=== PATIENT | female | born 1965 | race Caucasian/White ===

== ENCOUNTER 2024-11-08 06:36 | Inpatient (IN) ==
--- NOTE | 2024-11-08 07:05 | Emergency Department Note ---
Impression & Plan Closed fracture of right tibial plateau, Fall from standing ED Provider Note HISTORY OF PRESENT ILLNESS: Patient is a 59-year-old female presenting with right knee pain. Patient reports she just moved into a new house and thought she was on the ground floor but she was 2 steps away, and lost her footing and fell, landing on her right knee. Reports immediate pain and deformity to the knee. She reports that "it sounded like it snap, crackle then popped." She was unable to bear weight since the injury. Denies striking her head or loss of consciousness. She has had previous cartilage repair to the right knee. Denies any numbness or tingling down the leg. Currently complaining of 7 out of 10 pain in the knee. ROS: as above PHYSICAL EXAM: Constitutional: Patient appears in no acute distress. HENT: Head: Normocephalic and atraumatic. Eyes: EOMI, PERRL Mouth/Throat: Mucous membranes moist. Neck: Trachea midline. Neck supple. Musculoskeletal: - RLE: Swelling to the anterior right knee. Patient is able to flex and extend the knee, but with some significant pain with range of motion. Able to dorsiflex and plantarflex the ankle. Sensation intact to light touch about the nerve distributions of the leg. Intact DP and PT pulses. Patient does have laxity of the knee with valgus stress on the knee. No laxity with varus stressing. Skin: Warm and dry. No rash, erythema, pallor or cyanosis Psychiatric: Appropriate mood and affect for situation. Neurological: Alert and keenly responsive. CN II-XII grossly intact, moving all extremities equally and fully. MDM: - Vitals signs showed hypertension - History obtained via patient. History as above. - Chronic conditions affecting care: None - Differential diagnoses include, but are not limited to: Patellar fracture; tibial plateau fracture; knee dislocation ligamentous injury; - Order placed for continuous cardiac monitoring. At this time, monitor showed rate of 63 bpm with normal sinus rhythm, per my interpretation. - External medical records reviewed. - Patient given 5 mg PO oxycodone on arrival to ER for pain control. - Right knee x-ray interpreted by myself showed a tibial plateau fracture, per my interpretation. Radioloy notes acute, depressed fracture of the right lateral tibial plateau. - Discussed case with orthopedic surgeon on-call, Dr. Pina, at 7:31 am. He requested a CT scan without contrast of the right knee be performed. - CT wo contrast right knee showed an acute depressed markedly comminuted fracture of the lateral tibial plateau extending to the base of the lateral tibial spine with maximal 9 mm depression. - Again discussed case with Dr. Pina at 9 AM. He states that the patient can remain here and he will plan to do surgery tomorrow. Requested admission to medicine service. - Knee was placed in a knee immobilizer splint. - IV access obtained and laboratory workup obtained for pre-op testing. - EKG image interpreted by myself showed normal sinus rhythm. Rate 60 bpm. QT 416. No acute ischemic changes. - Laboratory workup interpreted by myself showed normal WBC; stable electrolytes - CXR obtained for preoperative testing and interpreted by myself is negative for pneumonia, per my interpretation. - Discussion was had with caseworker protective services about patient's case and need for admission - Hospitalist, Dr. Jin consulted for admission at 9:45 AM. - [facility] ASSESSMENT AND PLAN: Diagnosis: Right tibial plateau fracture; fall from standing Plan: Admit Past Med/Surg History Problem List (Updated 11/08/24 @ 11:03 by Katie Mccarthy MD) Fall from standing (Acute) Closed fracture of right tibial plateau (Acute) Tibial plateau fracture, left Social History Smoking Status: Current every day smoker Preferred Language: Indonesian Feels Safe at Home: Yes Allergies Allergies Allergy/AdvReac Type Severity Reaction Status Date / Time No Known Allergies Allergy Unverified 11/08/24 08:45 Home Meds Home Medications Medication Instructions Recorded Confirmed acetaminophen 650 mg 1,300 mg PO QAM 11/08/24 11/08/24 tablet,extended release ascorbic acid (vitamin C) 250 mg 250 mg PO DAILY 11/08/24 11/08/24 tablet aspirin 81 mg chewable tablet 81 mg PO QPM 11/08/24 11/08/24 atorvastatin 40 mg tablet 40 mg PO QPM 11/08/24 11/08/24 fish, borage, flaxseed oils-omega 1 cap PO DAILY 11/08/24 11/08/24 3,6,9 comb no.1 1,200 mg capsule ([place] 3-6-9) naproxen sodium 220 mg tablet 440 mg PO QAM 11/08/24 11/08/24 (Aleve) Results & Data (ED) Vital Signs Vital Signs - 24 hr 11/08/24 06:40 11/08/24 08:56 11/08/24 10:00 Temperature 36.3 C L Temperature Source Temporal Artery Scan Pulse Rate 76 Pulse Rate [Finger] 68 71 Respiratory Rate 18 16 16 Respiratory Effort / Characteristics Non-Labored Spontaneous Non-Labored Spontaneous Respiratory Depth Normal Normal Normal Blood Pressure 161/65 H Blood Pressure [Right Arm] 164/70 H 150/75 H Blood Pressure Mean 97 Blood Pressure Mean [Right Arm] 101 100 Blood Pressure Position [Right Arm] Semi-fowlers Semi-fowlers Pulse Oximetry 100 97 99 Oxygen Delivery Method Room Air Room Air Room Air Sepsis Recent Fever Within 48 Hours No Sepsis New/Unexplained Change in Mental Status No Sepsis Action Taken by Nursing No Action Required 11/08/24 10:46 Temperature Temperature Source Pulse Rate Pulse Rate [Finger] 63 Respiratory Rate 16 Respiratory Effort / Characteristics Non-Labored Spontaneous Respiratory Depth Normal Blood Pressure Blood Pressure [Right Arm] 160/71 H Blood Pressure Mean Blood Pressure Mean [Right Arm] 100 Blood Pressure Position [Right Arm] Semi-fowlers Pulse Oximetry 100 Oxygen Delivery Method Room Air Sepsis Recent Fever Within 48 Hours Sepsis New/Unexplained Change in Mental Status Sepsis Action Taken by Nursing Laboratory Data 11/08/24 10:25 11/08/24 10:25 Lab Results 11/08/24 Range/Units 10:25 WBC 8.85 (4.8-10.8) K/ul RBC 3.79 L (4.20-5.40) M/uL Hgb 11.2 L (12.0-16.0) g/dl Hct 33.5 L (37.0-47.0) % MCV 88.4 (80.0-100.0) fL MCH 29.6 (25.0-34.0) pg MCHC 33.4 (32.0-36.0) g/dL RDW Std Deviation 45.0 (36.4-46.3) fL RDW Coeff of Sarita 13.9 (11.5-14.5) % Plt Count 217 (130-400) K/uL MPV 9.5 (9.4-12.4) fL Immature Gran % (Auto) 0.3 % Neut % (Auto) 74.8 % Lymph % (Auto) 18.9 % Johnston % (Auto) 3.7 % Eos % (Auto) 1.7 % Baso % (Auto) 0.6 % Neut # (Auto) 6.62 H (1.40-6.50) K/uL Lymph # (Auto) 1.67 (1.20-3.40) K/uL Johnston # (Auto) 0.33 (0.11-0.59) K/uL Eos # (Auto) 0.15 (0.00-0.50) K/uL Baso # (Auto) 0.05 (0.00-0.20) K/uL Immature Gran # (Auto) 0.03 (0.01-0.20) K/uL Sodium 140 (136-145) mmol/L Potassium 3.8 (3.5-5.1) mmol/L Chloride 110 H (98-107) mmol/L Carbon Dioxide 26 (21-32) mmol/L Anion Gap 4 (3-11) BUN 12 (6-23) mg/dl Creatinine 0.66 (0.6-1.2) mg/dl Est Cr Clr Drug Dosing 89.2 ml/min eGFR 99.74 BUN/Creatinine Ratio 18.2 (10-20) Glucose 87 (70-99(Fasting)) mg/dl Calcium 8.9 (8.6-10.3) mg/dl Total Bilirubin 0.6 (0.2-1.0) mg/dl AST 16 (13-39) U/L ALT 14 (7-52) U/L Alkaline Phosphatase 80 (34-104) U/L Total Protein 6.4 (6.0-8.3) gm/dl Albumin 4.0 (3.4-5.0) gm/dl Globulin 2.4 L (2.5-4.0) gm/dl Albumin/Globulin Ratio 1.7 (0.9-2) Administered Medications Acetaminophen (Acetaminophen 500 Mg Tab) 1,000 mg PO Q8H MARCO Stop: 12/08/24 09:59 Last Admin: 11/08/24 10:29 Dose: 1,000 mg Documented By: MMF Discontinued Medications Oxycodone HCl (Oxycodone Hcl Ir 5 Mg Tab (Immediate Release)) 5 mg PO NOW STA Stop: 11/08/24 06:58 Last Admin: 11/08/24 07:14 Dose: 5 mg Documented By: [facility] Imaging Data Radiologist's Impression: Knee X-Ray 11/08/24 06:57 EXAM: Radiographs of the Right Knee 2 Views INDICATION: Posttraumatic pain. TECHNIQUE: Frontal and lateral views of the right knee. COMPARISON: No relevant prior studies available. FINDINGS: Bones/joints: There is an acute depressed fracture of the lateral tibial plateau. Concavity is approximately 6 mm. There is minimal lateral tibial translation. There is mild tricompartment spurring. There is a lipohemarthrosis. No dislocation. No erosion or loose body. Soft tissues: No abnormality noted. No radiopaque foreign body noted. IMPRESSION: 1. Acute, depressed fracture of the right lateral tibial plateau. 2. Mild tricompartment primary osteoarthritis. ACT 112: N/A Electronically signed by Elsie Reilly 11-08-2024 08:[address] 11/08/24 07:33 EXAM: CT Right Lower Extremity Without Intravenous Contrast Knee INDICATION: Fracture TECHNIQUE: Axial computed tomography images of the right knee without intravenous contrast. Sagittal and coronal reformatted images were created and reviewed. This CT exam was performed using one or more of the following dose reduction techniques: automated exposure control, adjustment of the mA and/or kV according to patient size, and/or use of iterative reconstruction technique. COMPARISON: Right knee radiographs the same day FINDINGS: Bones/joints: The bones are generally demineralized. There is a moderate to severely comminuted fracture of the proximal tibia involving the lateral compartment with extension to involve the base of the lateral tibial spine. Fracture fragments are depressed with maximal depression of 9 mm. There is minimal distraction of a prominent anterolateral plateau fragment measuring 2.4 x 1.6 x 2.2 cm. Depression is most severe medially. There is moderate spurring of the articular surfaces of the femur as well as mild spurring of the intercondylar notch. There is spurring of the medial and lateral articular surfaces of the tibia. There is a well-corticated ossicle along the lateral femoral condyle consistent with previous injury. There is moderate patellofemoral spurring, subchondral cystic change and sclerosis. There is a moderate lipohemarthrosis. Soft tissues: No abnormality noted. IMPRESSION: 1. Acute depressed markedly comminuted fracture of the lateral tibial plateau extending to the base of the lateral tibial spine with maximal 9 mm depression. 2. Moderate tricompartment primary osteoarthritis. ACT 112: N/A Electronically signed by Elsie Reilly 11-08-2024 08:43 AM Chest X-Ray 11/08/24 09:46 EXAM: Radiograph of the Chest 1 View INDICATION: Preoperative evaluation. TECHNIQUE: Frontal view of the chest. COMPARISON: No relevant prior studies available. FINDINGS: Lungs and pleural spaces: Very mild hyperinflation noted. No consolidation or pulmonary edema. No pleural effusion or pneumothorax. Heart: Shape and configuration within normal limits allowing for technique. Mediastinum: Normal contour. Bones/joints: No fracture, erosion or dislocation. Soft tissues: No abnormality noted. No radiopaque foreign body noted. Upper abdomen: No abnormality noted. IMPRESSION: No acute cardiopulmonary disease. ACT 112: N/A Electronically signed by Elsie Reilly 11-08-2024 10:31 AM Discharge Plan Visit Data Chief Complaint: Leg Injury/Pain Stated Complaint: RT LEG PAIN, FALL ED Provider: Katie Mccarthy Discharge Problem: Closed fracture of right tibial plateau, Fall from standing Condition: Fair Discharge Instructions Interventions: ED Discharge Assessment Last Done: 11/08/24 10:43 Forms Stand Alone Forms: My [employer] Prescriptions Prescriptions: No Action atorvastatin 40 mg tablet 40 mg PO QPM acetaminophen [Tylenol Arthritis] 650 mg Tablet Extended Release 1,300 mg PO QAM Patient Comments: Pt alternates w/ Aleve every other week. Pt is currently on Aleve week. 11/08/24 ascorbic acid (vitamin C) [Vitamin C With Opal Hips] 250 mg Tablet 250 mg PO DAILY naproxen sodium [Aleve] 220 mg Tablet 440 mg PO QAM Patient Comments: Pt alternates w/ Tylenol every other week. Pt is currently on Aleve week. 11/08/24 aspirin 81 mg tablet,chewable 81 mg PO QPM Cornell 3-6-9 1,200 mg Capsule 1 cap PO DAILY Referrals Referrals: PCP,NO [Physician] -
--- NOTE | 2024-11-08 08:25 | XRay Report ---
EXAM: Radiographs of the Right Knee 2 Views INDICATION: Posttraumatic pain. TECHNIQUE: Frontal and lateral views of the right knee. COMPARISON: No relevant prior studies available. FINDINGS: Bones/joints: There is an acute depressed fracture of the lateral tibial plateau. Concavity is approximately 6 mm. There is minimal lateral tibial translation. There is mild tricompartment spurring. There is a lipohemarthrosis. No dislocation. No erosion or loose body. Soft tissues: No abnormality noted. No radiopaque foreign body noted. IMPRESSION: 1. Acute, depressed fracture of the right lateral tibial plateau. 2. Mild tricompartment primary osteoarthritis. ACT 112: N/A Electronically signed by Elsie Reilly 11-08-2024 08:25 AM
--- NOTE | 2024-11-08 08:44 | CT Scan Report ---
EXAM: CT Right Lower Extremity Without Intravenous Contrast Knee INDICATION: Fracture TECHNIQUE: Axial computed tomography images of the right knee without intravenous contrast. Sagittal and coronal reformatted images were created and reviewed. This CT exam was performed using one or more of the following dose reduction techniques: automated exposure control, adjustment of the mA and/or kV according to patient size, and/or use of iterative reconstruction technique. COMPARISON: Right knee radiographs the same day FINDINGS: Bones/joints: The bones are generally demineralized. There is a moderate to severely comminuted fracture of the proximal tibia involving the lateral compartment with extension to involve the base of the lateral tibial spine. Fracture fragments are depressed with maximal depression of 9 mm. There is minimal distraction of a prominent anterolateral plateau fragment measuring 2.4 x 1.6 x 2.2 cm. Depression is most severe medially. There is moderate spurring of the articular surfaces of the femur as well as mild spurring of the intercondylar notch. There is spurring of the medial and lateral articular surfaces of the tibia. There is a well-corticated ossicle along the lateral femoral condyle consistent with previous injury. There is moderate patellofemoral spurring, subchondral cystic change and sclerosis. There is a moderate lipohemarthrosis. Soft tissues: No abnormality noted. IMPRESSION: 1. Acute depressed markedly comminuted fracture of the lateral tibial plateau extending to the base of the lateral tibial spine with maximal 9 mm depression. 2. Moderate tricompartment primary osteoarthritis. ACT 112: N/A Electronically signed by Elsie Reilly 11-08-2024 08:43 AM
--- NOTE | 2024-11-08 10:01 | History & Physical Report ---
Date of Service November 08, 2024 Assessment & Plan (1) Tibial plateau fracture, left: Plan: 59-year-old female with past medical history of dyslipidemia, smoker, presenting with right knee pain after a fall this morning. Right tibial plateau fracture Status post mechanical fall Evaluated by orthopedic service, plan for OR tomorrow patient at moderate risk for cardiopulmonary complications perioperatively given age group, medical comorbidities will order an echo as patient reports intermittent, infrequent palpitations ~3 sec Tylenol 1 g every 8 hours, as needed tramadol and oxycodone, daily MiraLAX Ice packs To the right knee PT OT after OR Bedrest for now, further activity recommendations per Ortho service Other chronic medical conditions: Dyslipidemia-on Lipitor History of breast mass, s/p resection, right DVT prophylaxis SCDs for now in light of anticipated OR tomorrow Full code Disposition Lives at home PT OT evaluation after surgery plan of care discussed with patient in detail and at length all questions answered she is understanding, agreeable, comfortable with the plan of care History of Present Illness Chief Complaint: Right knee pain after a fall Primary Care Provider: YVAN Phillip 59-year-old female with past medical history of dyslipidemia, smoker, presenting with right knee pain after a fall this morning. Patient was walking down the steps when she accidentally missed 2 steps landing on the floor with her right knee. Patient then experienced severe pain after the fall and had difficulty standing up. She denies dizziness, lightheadedness, Presyncope/syncope prior to the fall. Upon arrival to the ER, blood pressure 161/65, pulse rate 76, heart rate 18, 100% on room air, afebrile. CT of the right knee showing acute depressed markedly comminuted fracture of the lateral tibial plateau extending to the base of the lateral tibial spine with maximal 9 mm depression. Orthopedic service consulted, plan for OR tomorrow. On exam, patient seen resting in bed, not in distress, comfortable. States right knee pain is well-controlled overall, worsening with movement. Denies any other pain in her body. Denies head trauma during the fall. Patient reports she is an active person, cleans the house frequently, climbing up and down at least 12 steps multiple times a day with no unusual shortness of breath or chest pain. She does report occasional palpitations, once a month lasting for about 2 to 3 seconds with no associated symptoms. This has been worked up by her primary care physician including EKG- Unrevealing as per patient, an echocardiogram last month, results not yet relayed to the patient as of this time. Allergies Allergy/AdvReac Type Severity Reaction Status Date / Time No Known Allergies Allergy Unverified 11/08/24 08:45 Home Medications Medication Instructions Recorded Confirmed Type acetaminophen 650 mg 1,300 mg PO QAM 11/08/24 11/08/24 History tablet,extended release ascorbic acid (vitamin C) 250 mg 250 mg PO DAILY 11/08/24 11/08/24 History tablet aspirin 81 mg chewable tablet 81 mg PO QPM 11/08/24 11/08/24 History atorvastatin 40 mg tablet 40 mg PO QPM 11/08/24 11/08/24 History fish, borage, flaxseed oils-omega 1 cap PO DAILY 11/08/24 11/08/24 History 3,6,9 comb no.1 1,200 mg capsule ([place] 3-6-9) naproxen sodium 220 mg tablet 440 mg PO QAM 11/08/24 11/08/24 History (Aleve) Past Med/Surg History Problem List (Updated 11/08/24 @ 14:11 by Ishmael Jin MD) Breast mass Osteopenia Fall from standing (Acute) Closed fracture of right tibial plateau (Acute) Tibial plateau fracture, left Social History Smoking Status: Current every day smoker Preferred Language: Japanese Feels Safe at Home: Yes Review of Systems Review of Systems: all noted and negative except for above Physical Exam Physical Exam: General- oriented x 3, not in distress, speaks in sentences with no effort or accessory muscle use Head- atraumatic Eyes- PERRL, EOMI, anicteric ENT- oropharynx clear Neck- supple, no JVD, no adenopathy, no thyromegaly; carotids +2/2, no bruits appreciated Lungs- clear to auscultation bilaterally, no rales/wheezes Heart- normal rate, regular rhythm; no murmur, no gallop, no rub appreciated Abdomen- normal bowel sounds, nondistended, soft, nontender, no masses or hepatosplenomegaly Extremities- no pretibial edema, no calf tenderness; peripheral pulses intact R knee: Significant edema, small hematoma, mild tenderness, no erythema, no warmth, very limited range of motion due to pain Neuro- alert, oriented x 3; CN 2-12 grossly intact; motor 5/5 bilaterally;sensation 100% on all extremities; no other gross focal neurologic deficits Skin- warm & dry Results & Data Results & Data Vital Signs (Past 12 Hours) Vital Signs Temp Pulse Pulse Resp BP BP Pulse Ox 11/08/24 08:56 68 16 164/70 H 97 11/08/24 06:40 36.3 C L 76 18 161/65 H 100 O2 Del Method 11/08/24 08:56 Room Air 11/08/24 06:40 Room Air all noted and reviewed including below Code Status & VTE Plan VTE Prophylaxis Plan VTE Prophylaxis will be ordered: Yes
[2024-11-08] MEDS: ACETAMINOPHEN 500 MG TAB PO SCH (10:29)
--- NOTE | 2024-11-08 10:32 | XRay Report ---
EXAM: Radiograph of the Chest 1 View INDICATION: Preoperative evaluation. TECHNIQUE: Frontal view of the chest. COMPARISON: No relevant prior studies available. FINDINGS: Lungs and pleural spaces: Very mild hyperinflation noted. No consolidation or pulmonary edema. No pleural effusion or pneumothorax. Heart: Shape and configuration within normal limits allowing for technique. Mediastinum: Normal contour. Bones/joints: No fracture, erosion or dislocation. Soft tissues: No abnormality noted. No radiopaque foreign body noted. Upper abdomen: No abnormality noted. IMPRESSION: No acute cardiopulmonary disease. ACT 112: N/A Electronically signed by Elsie Reilly 11-08-2024 10:31 AM
[2024-11-08 10:37] LABS: Hematocrit (blood only) 33.5 % (37.0-47.0); Hemoglobin 11.2 g/dl (12.0-16.0); Immature Granulocytes # (auto) 0.03 K/uL (0.01-0.20); Immature Granulocytes % (auto) 0.3 %; Mean Corpuscular Hemoglobin 29.6 pg (25.0-34.0); Mean Corpuscular Volume 88.4 fL (80.0-100.0); Platelet Count 217 K/uL (130-400); RDW Standard Deviation 45.0 fL (36.4-46.3); Red Blood Count 3.79 M/uL (4.20-5.40); White Blood Count 8.85 K/ul (4.8-10.8)
[2024-11-08 10:53] LABS: Alanine Aminotransferase 14.0 U/L (7-52); Albumin Globulin Ratio 1.7 (0.9-2); Alkaline Phosphatase 80.0 U/L (34-104); Anion Gap 4.0 (3-11); Bilirubin,Total 0.6 mg/dl (0.2-1.0); Blood Urea Nitrogen 12.0 mg/dl (6-23); Calcium 8.9 mg/dl (8.6-10.3); Carbon Dioxide 26.0 mmol/L (21-32); Chloride 110.0 mmol/L (98-107); Creatinine Clr Calc Pharmacy 89.2 ml/min; Globulin 2.4 gm/dl (2.5-4.0); Glucose 87.0 mg/dl (70-99(Fasting)); Potassium 3.8 mmol/L (3.5-5.1); Sodium 140.0 mmol/L (136-145); Total Protein 6.4 gm/dl (6.0-8.3)
[2024-11-08 11:13] LABS: INR 0.9 (0.9-1.1); Prothrombin Time 10.3 Seconds (9.0-12.0)
--- NOTE | 2024-11-08 11:46 | Orthopedic Consultation ---
Date of Consultation November 08, 2024 Assessment & Plan (1) Fall from standing: (2) Closed fracture of right tibial plateau: (3) Osteopenia: Plan 59-year-old female presents the emergency department after a mechanical fall onto her right knee. During the fall, she sustained a closed, traumatic, displaced right tibial plateau fracture that is a split depressed variant. I do long discussion with the patient regarding the nature of this injury. We discussed in great detail the pathoanatomy, pathophysiology, treatment options. I expressed to her that given the significant articular depression, my recommendation is for operative management for open reduction internal fixation of her tibial plateau potentially with bone grafting versus augmentation in the appreciable void. I expressed to her that operative management provides the best chance at restoring the articular congruity and providing a stable bone block in case the patient does require arthroplasty in the future. The alternative to surgical management would be for nonoperative care which would involve a period of time nonweightbearing and I suspect that this carries with it a very high risk of posttraumatic osteoarthrosis. Patient does understand that based on the nature of this injury being an articular fracture of the knee, she is at risk of posttraumatic osteoarthrosis with or without surgery. We discussed the risks of surgery in great detail as well. The risks include but are not limited to loss of life/limb, DVT, incomplete relief of pain, nonunion, malunion, hardware complication, hardware failure, hardware irritation, infection, need for additional surgery, iatrogenic injury to bone/ nerve/tendon/vessel. After thorough discussion the risk, benefits and alternatives to surgical management, the patient is interested in pursuing operative care. Patient has been admitted to the medical team to undergo optimization and we will plan to take the patient to the operating room tomorrow morning for open reduction internal fixation of right tibial plateau with bone grafting versus augmentation of the bone void. Patient to be placed into a knee immobilizer at this time. She should be n.p.o. after midnight tonight. She is nonweightbearing on her right lower extremity. She will begin DVT prophylaxis postoperatively. History of Present Illness Reason for Consultation: Right knee pain Attending Physician: Ishmael Jin MD History of Present Illness 59-year-old female presenting to the emergency department after a fall that occurred this morning. The patient was walking down the stairs when she missed 2 steps and sustained a mechanical fall onto her right knee. Upon presentation emergency department she was discovered to have a lateral tibial plateau fracture for which I was consulted. My evaluation this morning, the patient notes pain only in her right knee. She denies any additional areas of pain. She denies any loss of consciousness. She did not hit her head. Patient notes that she has had antecedent knee pain from arthritis, but otherwise she had had no troubles with her knees. She is a daily tobacco user (cigarette smoker). Otherwise, she denies additional significant past medical history other than hypertension and hyperlipidemia. Allergies Allergy/AdvReac Type Severity Reaction Status Date / Time No Known Allergies Allergy Unverified 11/08/24 08:45 Home Medications Medication Instructions Recorded Confirmed Type acetaminophen 650 mg 1,300 mg PO QAM 11/08/24 11/08/24 History tablet,extended release ascorbic acid (vitamin C) 250 mg 250 mg PO DAILY 11/08/24 11/08/24 History tablet aspirin 81 mg chewable tablet 81 mg PO QPM 11/08/24 11/08/24 History atorvastatin 40 mg tablet 40 mg PO QPM 11/08/24 11/08/24 History fish, borage, flaxseed oils-omega 1 cap PO DAILY 11/08/24 11/08/24 History 3,6,9 comb no.1 1,200 mg capsule ([place] 3-6-9) naproxen sodium 220 mg tablet 440 mg PO QAM 11/08/24 11/08/24 History (Aleve) Patient History Social History Smoking Status: Current every day smoker Preferred Language: Bel[place]ian Feels Safe at Home: Yes Review of Systems Review of Systems: All systems reviewed & are unremarkable except as noted in HPI & below Physical Exam Physical Exam: On physical examination, the patient has swelling about her right knee. No open wounds appreciated. Previous medial meniscectomy wound noted medially. She is nontender in her tibial shaft. Nontender at the ankle. Nontender along the femur. She has intact sensation throughout the lower extremity equal to the contralateral side. Results & Data Vital Signs (Past 12 Hours) Vital Signs Temp Pulse Pulse Resp BP BP Pulse Ox 11/08/24 11:17 36.7 C 69 16 166/78 H 97 11/08/24 10:46 63 16 160/71 H 100 11/08/24 10:00 71 16 150/75 H 99 11/08/24 08:56 68 16 164/70 H 97 11/08/24 06:40 36.3 C L 76 18 161/65 H 100 O2 Del Method 11/08/24 11:17 Room Air 11/08/24 10:46 Room Air 11/08/24 10:00 Room Air 11/08/24 08:56 Room Air 11/08/24 06:40 Room Air Diagnostic Findings X-rays and CT scan of the right knee were personally interpreted and reviewed. These demonstrate a lateral tibial plateau fracture that is split and depressed. Patient has osteopenic bone.
[2024-11-08] MEDS: NICOTINE 14 MG/24 HR PATCH TD SCH (16:54)
--- NOTE | 2024-11-08 19:30 | XRay Report ---
EXAM: XR tibia fibula RT 2V CLINICAL HISTORY: Eval entire bone. TECHNIQUE: X-ray right tibia and fibula, 2 views: AP (Anteroposterior) and lateral projections. COMPARISON: None, FINDINGS: Bone: Comminuted fracture of the lateral tibial plateau. The rest of the visualized tibia and fibula are intact, and no evidence of fracture or dislocation. advanced Osteoarthritic changes of the knee joint. calcaneal bony spur at its plantar aspect. Soft Tissue: Knee joint effusion. Otherwise, the rest of the Soft tissues appear normal with no significant swelling or abnormal calcifications. IMPRESSION: Comminuted fracture of the lateral tibial plateau. Intact tibial and fibular shafts. Disclaimer: A subtle bone abnormality or fracture may not be readily apparent on X-rays; thus, clinical correlation and further imaging, including follow-up CT, MRI, or follow-up X-rays, are advised as needed. Electronically signed by Sergei Verdin 11-08-2024 7:30 PM
--- NOTE | 2024-11-08 19:31 | XRay Report ---
EXAM: XR femur RT 2V routine CLINICAL HISTORY: Eval entire bone TECHNIQUE: X-ray, AP, and lateral projections of the right femur radiographs were obtained. COMPARISON: none FINDINGS: Femur: Comminuted fracture of the lateral tibial plateau A small bony fragment is seen at the lateral aspect of the lateral femoral condyle, which could be a detached small osteophyte, to be correlated with the CT knee. Normal alignment of the femur with no fractures or dislocations. No lytic or sclerotic lesions. No periosteal reaction or abnormal bone formation. Joint: mild osteoarthritic angles of the right hip joint advanced Osteoarthritic changes of the knee joint Knee joint effusion Soft Tissues: Normal appearance of the soft tissues surrounding the femur. IMPRESSION: 1. Comminuted fracture of the lateral tibial plateau. 2. A small bony fragment is seen at the lateral aspect of the lateral femoral condyle, which could be a detached small osteophyte, to be correlated with the CT knee. 3. Mild osteoarthritic angles of the right hip joint. 4. Advanced osteoarthritic changes of the knee joint. 5. Moderate to marked Knee joint effusion. 6. No evidence of fractures, dislocations, or significant abnormalities of the right femur. Electronically signed by Sergei Verdin 11-08-2024 7:31 PM
[2024-11-08] MEDS: ATORVASTATIN 40 MG TAB PO SCH (20:17)
[2024-11-08] MEDS: ONDANSETRON INJ 2 MG/ML 2 ML VIAL IV PRN (23:04)
[2024-11-09 06:23] LABS: Hematocrit (blood only) 31.4 % (37.0-47.0); Hemoglobin 10.5 g/dl (12.0-16.0); Immature Granulocytes # (auto) 0.02 K/uL (0.01-0.20); Immature Granulocytes % (auto) 0.3 %; Mean Corpuscular Hemoglobin 29.5 pg (25.0-34.0); Mean Corpuscular Volume 88.2 fL (80.0-100.0); Platelet Count 186 K/uL (130-400); RDW Standard Deviation 44.5 fL (36.4-46.3); Red Blood Count 3.56 M/uL (4.20-5.40); White Blood Count 7.46 K/ul (4.8-10.8)
[2024-11-09 06:44] LABS: Anion Gap 4.0 (3-11); Blood Urea Nitrogen 13.0 mg/dl (6-23); Calcium 8.5 mg/dl (8.6-10.3); Carbon Dioxide 27.0 mmol/L (21-32); Chloride 108.0 mmol/L (98-107); Creatinine Clr Calc Pharmacy 71.4 ml/min; Glucose 96.0 mg/dl (70-99(Fasting)); Potassium 3.9 mmol/L (3.5-5.1); Sodium 139.0 mmol/L (136-145)
--- NOTE | 2024-11-09 07:10 | Hospitalist Progress Note ---
Date of Service November 09, 2024 Assessment & Plan (1) Tibial plateau fracture, left: Plan: 59-year-old female with past medical history of dyslipidemia, smoker, presenting with right knee pain after a mechanical fall this morning. Right tibial plateau fracture Status post mechanical fall Evaluated by orthopedic service, plan for OR today Moderate risk for cardiopulmonary complications perioperatively given age group, medical comorbidities ECHO: EF 55-60%, LVWMN RCRI Preoperative risk: zero; 0.5% risk of major cardiac event CXR (-) for acute cardiopulmonary disease ECG: NSR without prolongation of QTc Tylenol 1 g Q8 scheduled PRN Tramadol (Utilized ONE dose overnight) PRN Oxycodone (Utilized THREE doses overnight) daily MiraLAX; Ice packs for R knee PT/OT post-op; Bedrest for now Other chronic medical conditions: Dyslipidemia: Takes Lipitor; continue History of R breast mass, s/p resection: Avoid R arm for blood draws No ill affect from anesthesia Disposition: Code Status: Full Code VTE Prophylaxis: SCDs for now PCP: Angelia Engle I spent a total of 59 minutes coordinating, documenting, and providing care for this patient excluding time spent in the performance of separately billed services or time spent by another provider/QHP. Admission and Anticipated Discharge Date Admission Date: November 08, 2024 Supervising Physician Co-Signing Physician Notes Patient is seen and examined postoperatively. She denies any significant right knee pain at surgical site. Admits to have some tingling and nausea. No other complaints. Physical Exam: Vitals signs as noted above General Appearance:Moderately built and nourished, no apparent distress Head: normocephalic, Atraumatic Eyes: normal inspection, EOMI Neck: supple, Trachea midline Respiratory/Chest: Normal breath sounds, CTA, No accessory muscle use Cardiovascular: S1, S2, No murmur Abdomen/GI:Soft, Non tender, Bowel sounds present Extremities/Musculoskeletal:normal inspection, left knee surgical site in dressing, no edema Neurologic/Psych:AAOX3, grossly no focal neurological deficits Skin: normal color, warm Closed fracture of right tibial plateau S/P ORIF Monitor for postop anemia Pain control as needed Bowel regimen to prevent constipation Appreciate orthopedics help PT OT when appropriate Advance diet as tolerated SCDs for now I personally interviewed and examined the patient at bedside. I have reviewed the advanced practitioner's documentation on the date of service referred in note and agree with plan. Patient's care is coordinated with Charley SANTORO. Please refer to the documentation above for details of patient's presentation and for discussion of other issues. I spent a total [id number] coordinating, documenting, and providing care for this patient excluding time spent in the performance of separately billed services or time spent by another provider/QHP. Subjective Pt lying in her hospital bed in no apparent distress. She has her right leg elevated. She was able to sleep last night. Denies AGUILAR, dizziness, chest pain, palpitations, N/V/D. Plan for OR this AM for R tibia ORIF; NPO. See A/P for further details. Review of Systems Review of Systems: Neuro: (-) Falls, trauma, slurred speech HEENT: (-) AGUILAR, dizziness, dysphagia, visual or auditory changes CV: (-) CP, palpitations, swelling Resp: (-) SOB GI: (-) appetite changes, N/V/D, bowel changes : (-) urinary changes Skin: (-) rashes Musculoskeletal: R knee displaced and misaligned Psych: (-) anxiety, depression Physical Exam Physical Exam: Neuro: AAOx4, PERRLA, no aphagia, memory changes, CNII-XII grossly intact HEENT: head normocephalic, moist mucus membranes CV: S1/S2, (-) M/G/R, (-) edema, cap refill < 3 seconds (+) pedal pulses B/L Resp: Lungs CTA in all coppola. On RA GI: Abdomen S/NT/ND, Ax4 bowel sounds, (-) CVA tenderness Musculoskeletal: 5/5 B/L UE strength, RLE 4/5, LLE 5/5. NWB Left. Skin: (-) rashes , (-) erythema. Psych: euthymic mood Results & Data Results & Data Vital Signs (Past 12 Hours) Vital Signs Temp Pulse Resp BP Pulse Ox O2 Del Method 11/08/24 19:26 36.7 C 66 16 148/68 H 97 Room Air Laboratory Results Short CBC 11/08/24 11/09/24 Range/Units 10:25 05:48 WBC 8.85 7.46 (4.8-10.8) K/ul Hgb 11.2 L 10.5 L (12.0-16.0) g/dl Hct 33.5 L 31.4 L (37.0-47.0) % Plt Count 217 186 (130-400) K/uL BMP 11/08/24 11/09/24 10:25 05:48 Sodium 140 139 Potassium 3.8 3.9 Chloride 110 H 108 H Carbon Dioxide 26 27 BUN 12 13 Creatinine 0.66 0.79 Glucose 87 96 Calcium 8.9 8.5 L Liver Function 11/08/24 Range/Units 10:25 Total Bilirubin 0.6 (0.2-1.0) mg/dl AST 16 (13-39) U/L ALT 14 (7-52) U/L Alkaline Phosphatase 80 (34-104) U/L Albumin 4.0 (3.4-5.0) gm/dl Diagnostic Findings Femur X-Ray 11/08/24 11:53 EXAM: XR femur RT 2V routine CLINICAL HISTORY: Eval entire bone TECHNIQUE: X-ray, AP, and lateral projections of the right femur radiographs were obtained. COMPARISON: none FINDINGS: Femur: Comminuted fracture of the lateral tibial plateau A small bony fragment is seen at the lateral aspect of the lateral femoral condyle, which could be a detached small osteophyte, to be correlated with the CT knee. Normal alignment of the femur with no fractures or dislocations. No lytic or sclerotic lesions. No periosteal reaction or abnormal bone formation. Joint: mild osteoarthritic angles of the right hip joint advanced Osteoarthritic changes of the knee joint Knee joint effusion Soft Tissues: Normal appearance of the soft tissues surrounding the femur. IMPRESSION: 1. Comminuted fracture of the lateral tibial plateau. 2. A small bony fragment is seen at the lateral aspect of the lateral femoral condyle, which could be a detached small osteophyte, to be correlated with the CT knee. 3. Mild osteoarthritic angles of the right hip joint. 4. Advanced osteoarthritic changes of the knee joint. 5. Moderate to marked Knee joint effusion. 6. No evidence of fractures, dislocations, or significant abnormalities of the right femur. Electronically signed by Sergei Verdin 11-08-2024 7:31 PM Tibia/Fibula X-Ray 11/08/24 11:53 EXAM: XR tibia fibula RT 2V CLINICAL HISTORY: Eval entire bone. TECHNIQUE: X-ray right tibia and fibula, 2 views: AP (Anteroposterior) and lateral projections. COMPARISON: None, FINDINGS: Bone: Comminuted fracture of the lateral tibial plateau. The rest of the visualized tibia and fibula are intact, and no evidence of fracture or dislocation. advanced Osteoarthritic changes of the knee joint. calcaneal bony spur at its plantar aspect. Soft Tissue: Knee joint effusion. Otherwise, the rest of the Soft tissues appear normal with no significant swelling or abnormal calcifications. IMPRESSION: Comminuted fracture of the lateral tibial plateau. Intact tibial and fibular shafts. Disclaimer: A subtle bone abnormality or fracture may not be readily apparent on X-rays; thus, clinical correlation and further imaging, including follow-up CT, MRI, or follow-up X-rays, are advised as needed. Electronically signed by Sergei Verdin 11-08-2024 7:30 PM
[2024-11-09] MEDS ORDERED: ROCURONIUM BROMIDE 10 MG/ML 5 ML VIAL IV ONE (08:46)
[2024-11-09] MEDS ORDERED: ONDANSETRON INJ 2 MG/ML 2 ML VIAL ONE ×2 (08:46→13:04)
[2024-11-09] MEDS ORDERED: PROPOFOL IV EMULSION 10 MG/ML 20 ML VIAL IV ONE (08:46)
[2024-11-09] MEDS ORDERED: MIDAZOLAM HCL 1 MG/ML 2ML VIAL ONE (08:46)
[2024-11-09] MEDS ORDERED: DEXAMETHASONE SOD INJ 4 MG/ML VIAL ONE (08:46)
[2024-11-09] MEDS ORDERED: SUGAMMADEX SODIUM 200 MG/2 ML VIAL IV ONE (08:47)
[2024-11-09] MEDS: REMOVE NICODERM PATCH SCH (09:23)
[2024-11-09] MEDS: POLYETHYLENE (MIRALAX) 17 GM PACK PO SCH (09:23)
--- NOTE | 2024-11-09 09:26 | Anesthesiology Consultation ---
Date of Service November 09, 2024 Assessment & Plan Chart Review Chart Review: Acceptable Risk for Surgery and Patient NOT seen in Pre Admission Testing Consults Requested none ASA ASA3 Proposed Anesthesia Anesthesia Type: General Regional Regional Laterality: Right Site: Popliteal and Adductor Canal History Surgery Operation Date: 11/09/24 07:30 Proposed Procedures p Open Reduction Internal Fixation Right Tibial Plateau Fracture(Right) - Jeancarlos Pina DO Height/Weight Height: 5 ft 2 in Weight: 76 kg Allergies Allergy/AdvReac Type Severity Reaction Status Date / Time No Known Allergies Allergy Unverified 11/08/24 08:45 Medications Home Medications Medication Instructions Recorded Confirmed Last Taken acetaminophen 650 mg 1,300 mg PO QAM 11/08/24 11/08/24 11/01/24 tablet,extended release ascorbic acid (vitamin C) 250 mg 250 mg PO DAILY 11/08/24 11/08/24 11/07/24 tablet aspirin 81 mg chewable tablet 81 mg PO QPM 11/08/24 11/08/24 11/07/24 atorvastatin 40 mg tablet 40 mg PO QPM 11/08/24 11/08/24 11/07/24 fish, borage, flaxseed oils-omega 1 cap PO DAILY 11/08/24 11/08/24 11/07/24 3,6,9 comb no.1 1,200 mg capsule ([place] 3-6-9) naproxen sodium 220 mg tablet 440 mg PO QAM 11/08/24 11/08/24 11/07/24 (Aleve) Active Medications Generic Name Dose Route Start Last Admin Trade Name Freq PRN Reason Stop Dose Admin Acetaminophen 1,000 mg 11/08/24 10:00 11/09/24 02:31 Acetaminophen 500 Mg Tab PO 12/08/24 09:59 1,000 mg Q8H AMRCO Administration Atorvastatin Calcium 40 mg 11/08/24 21:00 11/08/24 20:17 Atorvastatin 40 Mg Tab PO 12/08/24 20:59 40 mg QPM MARCO Administration Miscellaneous 1 each 11/09/24 08:59 11/09/24 09:23 Remove Nicoderm Patch N/A 12/09/24 08:58 Not Given DAILY@0859 MARCO Nicotine 1 patch 11/09/24 09:00 11/08/24 16:54 Nicotine 14 Mg/24 Hr Patch TD 12/09/24 08:59 1 patch QAM MARCO Administration Ondansetron HCl 4 mg 11/08/24 11:14 11/08/24 23:04 Ondansetron Inj 2 Mg/Ml 2 Ml Vial IV 12/08/24 11:13 4 mg Q4H PRN Administration Nausea And Vomiting Oxycodone HCl 5 mg 11/08/24 09:55 11/08/24 23:58 Oxycodone Hcl Ir 5 Mg Tab (Immediate Release) PO 11/22/24 09:54 5 mg Q6H PRN Administration moderate to severe pain Polyethylene Glycol 17 gm 11/09/24 09:00 11/09/24 09:23 Polyethylene (Miralax) 17 Gm Pack PO 12/09/24 08:59 Not Given DAILY MARCO Tramadol HCl 50 mg 11/08/24 09:55 11/09/24 04:21 Tramadol Hcl 50 Mg Tablet PO 12/08/24 09:54 50 mg Q6H PRN Administration Moderate Pain (Scale 4, 5, 6) Past Medical History Anemia HLD + tobacco smoker COPD/emphysema obese osteopenia palpitations Exercise / Class Metabolic Activity II 4-5 Yardwork/Stairs/Walk up hill Past Anesthesia History No Hx of Anesthesia Complications and No Family Hx of Anesthesia Complications History of PONV No Hx of PONV and No Hx of Motion Sickness Social History Smoking Status: Current every day smoker Do You Dip or Chew Tobacco: No Hx Alcohol Use: No Hx Substance Use: No substance use type: does not use Physical Exam Vital Signs Last Vital Signs Temp 36.5 C 11/09/24 07:11 Pulse 60 11/09/24 07:11 Resp 16 11/09/24 07:11 BP 137/70 11/09/24 07:11 Pulse Ox 94 11/09/24 07:11 O2 Del Method Room Air 11/09/24 07:11 Testing Laboratory Results 11/09/24 05:48 11/09/24 05:48 PT 10.3 Seconds (9.0-12.0) 11/08/24 10:25 INR 0.9 (0.9-1.1) 11/08/24 10:25 Electrocardiogram Date: 11/08/24 Findings: + NSR @ (@ 60) Chest X-Ray Date: 11/08/24 Findings: + NAD C/W COPD/Emphysema Echocardiogram Date: 11/08/24 EF: 55% LV Function: normal RWMA: + none Valvular Disease: + no significant valvular disease
--- NOTE | 2024-11-09 10:00 | History & Physical Bridge Note ---
Date of Service November 09, 2024 History & Physical Bridge Note I have examined the patient, reviewed the History & Physical and in the interval since the performance of the History & Physical I have noted the following changes of clinical significance: 59-year-old female presened the emergency department after a mechanical fall onto her right knee. During the fall, she sustained a closed, traumatic, displaced right tibial plateau fracture that is a split depressed variant. I had a long discussion with the patient and her this morning regarding the nature of this injury. We discussed in great detail the pathoanatomy, pathophysiology, treatment options. I expressed to them that given the signi ficant articular depression, my recommendation is for operative management for open reduction internal fixation of her tibial plateau potentially with bone grafting versus augmentation in the appreciable void. I expressed to her that operative management provides the best chance at restoring the articular congruity and providing a stable bone block in case the patient does require arthroplasty in the future. The alternative to surgical management would be for nonoperative care which would involve a period of time nonweightbearing and I suspect that this carries with it a very high risk of p osttraumatic osteoarthrosis. Patient does understand that based on the nature of this injury being an articular fracture of the knee, she is at risk of posttraumatic osteoarthrosis with or without surgery. We discussed the risks of surgery in great detail as well. The risks include but are not limited to loss of life/limb, DVT, incomplete relief of pain, nonunion, malunion, hardware complication, hardware failure, hardware irritation, infection, need for additional surgery, iatrogenic injury to bone/nerve/tendon/vessel. After thorough discussion the risk, benefits and alternatives to surgical management, the patient is interested in pursuing operative care. Patient has been admitted to the medical team to undergo optimization and we will plan to take the patient to the operating room tomorrow morning for open reduction internal fixation of right tibial plateau with bone grafting versus augmentation of the bone void. surgical plan: Open reduction internal fixation right tibial plateau with bone grafting versus augmentation of bone void
[2024-11-09] MEDS ORDERED: ONDANSETRON INJ 2 MG/ML 2 ML VIAL IV PRN (10:15)
[2024-11-09] MEDS ORDERED: NALOXONE HCL 0.4 MG/1 ML VIAL/CARP IV PRN (10:15)
[2024-11-09] MEDS ORDERED: ATROPINE SULFATE 0.1 MG/ML 10ML SYR IV PRN (10:15)
[2024-11-09] MEDS ORDERED: FLUMAZENIL 0.1 MG/1 ML 10 ML VIAL IV PRN (10:15)
[2024-11-09] MEDS ORDERED: PROMETHAZINE HCL 6.25 MG in SODIUM CHLORIDE 0.9% 50 ML IV PRN (10:15)
[2024-11-09] MEDS ORDERED: HYDROmorphone INJ 1 MG/ML SYRINGE IV PRN (10:15)
[2024-11-09] MEDS ORDERED: ceFAZolin 330 MG/ML 1 GM VIAL ONE (10:47)
[2024-11-09] MEDS ORDERED: HYDROmorphone INJ 2 MG/ML SYR/VIAL ONE ×2 (10:47→12:12)
[2024-11-09] MEDS ORDERED: ePHEDrine sulfate 50 MG/5 ML SYR ONE (13:14)
--- NOTE | 2024-11-09 14:06 | Operative Report ---
Post Operative Report Pre & Post Diagnosis Operation Date: 11/09/24 07:30 Pre-Op Diagnosis: Closed fracture of right tibial plateau Post-Op Diagnosis: Closed fracture of right tibial plateau I identified the patient and participated in the time-out.: Yes Procedure Operation Date: 11/09/24 07:30 Actual Procedures p Open Reduction Internal Fixation Right Tibial Plateau Fracture, Physician guided flouroscopy >1 hour, Application of Negative Pressure Wound Therapy(Right) - Jeancarlos Pina DO 1. Open reduction internal fixation right tibial plateau fracture 2. Physician directed fluoroscopy greater than 1 hour 3. Application of negative pressure wound therapy Surgeon Jeancarlos Pina DO Mentally Impaired Teacher James Calderón PA-C Estimated Blood Loss 75 Findings Consistent with Post-Op Diagnosis Specimens none Anesthesia Type General Disposition Disposition: Recovery Room Indications 59-year-old female presened the emergency department after a mechanical fall onto her right knee. During the fall, she sustained a closed, traumatic, displaced right tibial plateau fracture that is a split depressed variant. I had a long discussion with the patient and her this morning regarding the nature of this injury. We discussed in great detail the pathoanatomy, pathophysiology, treatment options. I expressed to them that given the significant articular depression, my recommendation is for operative management for open reduction internal fixation of her tibial plateau potentially with bone grafting versus augmentation in the appreciable void. I expressed to her that operative management provides the best chance at restoring the articular congruity and providing a stable bone block in case the patient does require arthroplasty in the future. The alternative to surgical management would be for nonoperative care which would involve a period of time nonweightbearing and I suspect that this carries with it a very high risk of posttraumatic osteoarthrosis. Patient does understand that based on the nature of this injury being an articular fracture of the knee, she is at risk of posttraumatic osteoarthrosis with or without surgery. We discussed the risks of surgery in great detail as well. The risks include but are not limited to loss of life/limb, DVT, incomplete relief of pain, nonunion, malunion, hardware complication, hardware failure, hardware irritation, infection, need for additional surgery, iatrogenic injury to bone/nerve/tendon/vessel. After thorough discussion the risk, benefits and alternatives to surgical management, the patient is interested in pursuing operative care. surgical plan: Open reduction internal fixation right tibial plateau with bone grafting versus augmentation of bone void Description of Procedure after informed consent was obtained, the patient was correctly identified in the preoperative holding suite, the operative site was marked with the surgeon's initials, the date of surgery, and the word yes. The patient was then taken to the operative suite. The department of anesthesia administered General anesthesia. The patient was transferred from the [facility] to the operative table. All bony prominences were well-padded. Briefing and timeout was performed. All implants were available and sterile at the time. BRIEFING AND DEBRIEFING: Pre and post operative briefing and debriefing was performed. Introductions were made, goals of the procedure were discussed, questions and concerns were addressed. The operative site markings were identified and appropriate. A time the-[id number] was performed, the patient's correct identity was confirmed and the correct operative sites were identified. The patients pre-operative antibiotic dosing and administration was confirmed along with other SCIP measures. The team was p olled at the completion of the surgery and all team members were in agreement that the procedure was without complication, the counts are correct, the wound class was identified and suggestions for improvement were shared. after the patient was transferred in supine fashion to the operative table, (well-padded. A bump was placed on the ipsilateral hip and SCD placed on the contralateral lower extremity. Bilateral upper extremity placed on well-padded arm boards. A tourniquet was placed on the right thigh. We cleansed the right lower extremity with chlorhexidine scrub brush and then prepped and draped the right lower extremity in standard sterile fashion using ChloraPrep. We would exsanguinate the limb, raised the tourniquet to 250 mmHg. This remained elevated for 119 minutes and was not reinflated. We began by making a lazy S incision centered over Rufina's tubercle to approach the lateral proximal tibia. We incised sharply through skin and then dissected bluntly subcutaneous tissue until we encountered the IT band. We would incise the periosteum over Rufina's tubercle in line with our incision caring that distally over the fascia overlying the anterior compartment leaving a cuff of tissue for later repair. Proximally, we extended outside of the joint capsule through the IT band approximately 3 cm. We would create flaps both anteriorly and posteriorly off the proximal tibia exposing our fracture site. Next, we performed a capsulotomy leaving a cuff of tissue on the proximal tibia for later repair and then we performed a submeniscal arthrotomy. We tagged the meniscus both anteriorly and posteriorly with 0 Vicryl sutures for later repair. We then inspected the underside of meniscus and no discrete tear was noted. We evacuated the hematoma from within the knee and then we turned our attention towards the fracture. There was a small shell of bone on the outside that was attached to no articular bone, however did have osteophytes proximally. We wou ld save this to buttress our plate. Just inside of this there was a large articular piece which was gently pulled posteriorly and then there was an anterior shell with a reasonable amount of articular surface on this as well. We would use a lamina mustanger between those 2 large pieces and looked all the way back at the medial tibial spine. There were 4 separate articular pieces that were all compacted. We would elevate these with a [place] and build the joint from medial to lateral and from posterior to anterior. Sequentially, for each joint piece, once we had positioned the joint piece and were satisfied, we would send a wire from the lateral side, through the medial side of the proximal tibia and out the medial skin and back this until it was only engaged within the piece that we were reducing. We would repeat this sequentially for all of the small articular pieces and we would achieve the best reduction that we could. One of the pieces that was more medial and anterior was quite small and had very little subchondral bone in which to engage with a wire. This small piece measuring approximately 3 mm x 4 mm was instead supported inferiorly using cancellous bone chips. After we had secured all the articular comminution, we would use approximately 5 cc of cancellous bone chips to packed the bony void that was left due to the impaction injury. We tamped these up into place ensuring that they supported our reduced pieces more proximally. Once you are satisfied with the placement of all of our cancellous chips, we would "close the door" using the larger lateral articular pieces and the small shell of bone off the lateral side. We would quire these into place and draw these back from the medial side as we did above and check fluoroscopic views. We were satisfied with our reduction and at this time we would select a plate. We chose the Alps 3 hole proximal tibial plate from the [employer] set. We would provisionally place this on the proximal tibia and checked its position fluoroscopically. Once we are satisfied, we would wire this into place and then we would use our large periarticular reduction clamp approximately 2 reduce and squeeze all the fracture pieces together. This achieved excellent compression and once we are satisfied we would begin distally by drilling and placing the kickstand screw. This was a cortical screw to secure the plate to bone. Next, we would drill through the guide of one of the holes proximally, place an additional cortical screw in this in order to compress our articular segment even further and at this point we were satisfied with the reduction we had achieved so we removed the proximal drill guides and used the variable angle guide to place 3 locking screws proximally. Next, we would remove the original cortical screw that we had placed, and place a locking screw in its place. We then removed the periarticular reduction clamp and finished by drilling, measuring, and placing appropriately sized cortical screw into the most distal hole. Finally, for the more distal kickstand screw we would drill through the guide and placed a locking screw. Next, we inspected our plate position and stabilization. The anterior shell of bone was only partially underneath of this plate, so we made the decision to place a single 3.5 mm partially-threaded screw through this aiming posteriorly in order to secure this anterior shell as well. Due to the position of the screw, we are only able to place one additional locking screw proximally in the second row. We removed all of our provisional stabilization and took final fluoroscopic images. We were satisfied with the reduction and stabilization. We would then thoroughly irrigate the wound in the knee joint using 500 cc of sterile saline and began our layered closure. We started proximally repairing the meniscus down to the cuff of tissue left on the lateral shell of bone and we secured this by also tying this to the plate. We then would close our joint capsulotomy using an 0 Vicryl suture and then we closed the periosteum over Rufina's tubercle using 0 Vicryl suture in a [id number] fashion and then we would run an 0 Vicryl suture starting distally reapproximating the fascia over the anterior compartment and extending proximally until we encountered the IT band. Next, within the subcutaneous tissue we would use inverted 2-0 Vicryl's followed by a running 3-0 Monocryl, skin glue, Acticoat Flex for the skin. next, we would cover the wound with a negative pressure catina wound dressing to wick moisture away from the incision. Medially, we closed all wire holes using the skin glue and for the stab incision medially, we would bury the 2-0 Vicryl suture and cover this with skin glue. The patient tolerated this procedure well and was transferred to the PACU in stable condition. Prior to transportation to PACU, all counts were correct and a briefing was performed at the end of the case. Physician-directed fluoroscopy for greater than one hour was performed by myself to verify fracture alignment and the safe placement of all internal fixation. The final images saved to PACs showed views demonstrating satisfactory alignment of the fracture and stable internal fixation. Implant verification was performed by myself by reading and confirming the implant information on the packaging with the team before the sterile implants were opened. I was present for the entire procedure. due to the complex nature of the procedure, the entire surgery was performed with the operational assistance of James Calderón PA-C. The senior underwriting assistant, under direct supervision, was involved in the performance of all aspects of the surgical procedure including hemostasis, tissue retraction, instrument management, patient positioning and wound closure. Plan: Weight bearing status: nonweightbearing right lower extremity Wound care: keep dressing clean and dry Range of motion: patient was placed into a knee immobilizer postoperatively until we are able to obtain for her T ROM. Once her T ROM is obtained, she can work on gentle range of motion of the knee. VTE Prophylaxis: Okay to resume from orthopedic standpoint Antibiotics: perioperative Ancef Pain Control: Multimodal avoiding NSAIDs Vitamin D Replacement: labs ordered Discharge Plan: pending PT/OT Follow Up: with myself in 2 weeks for wound check Postop plan: A T ROM order has been placed and Pete Chamberlain has been contacted. Once the patient achieves this we can work on gentle range of motion of her knee. She is nonweightbearing on the right lower extremity. I attest to the content of the Intraoperative Record and any orders documented therein. Any exceptions are noted below.
--- NOTE | 2024-11-09 15:03 | Anesthesiology Progress Note ---
Date of Service November 09, 2024 Anesthesia Post Procedure Vital Signs Vital Signs: Temp Pulse Pulse Resp BP Pulse Ox O2 Del Method 11/09/24 14:50 75 16 154/77 H 99 Nasal Cannula 11/09/24 14:40 36.4 C L 74 17 136/54 L 97 Nasal Cannula 11/09/24 14:30 98 H 15 162/70 H 90 Nasal Cannula 11/09/24 14:20 36.0 C L 97 H 19 158/71 H 93 Oxymask 11/09/24 07:11 36.5 C 60 16 137/70 94 Room Air 11/08/24 19:26 36.7 C 66 16 148/68 H 97 Room Air O2 Flow Rate 11/09/24 14:50 2 11/09/24 14:40 2 11/09/24 14:30 2 11/09/24 14:20 5 11/09/24 07:11 11/08/24 19:26 Pain Intensity Right Leg: Pain Intensity: 1 Transfer of Care Handoff Completed per policy Notes Mental Status: alert / awake / arousable Patient Amnestic to Procedure: Yes Nausea / Vomiting: adequately controlled Pain: adequately controlled Airway Patency, RR, SpO2: stable & adequate BP & HR: stable & adequate Hydration State: stable & adequate Anesthetic Complications: no major complications apparent
[2024-11-09] MEDS ORDERED: MAGNESIUM HYDROXIDE SUSP 30 ML UDC PO PRN (15:17)
[2024-11-09] MEDS ORDERED: NO NSAIDS SCH (15:17)
[2024-11-09] MEDS: SODIUM CHLORIDE 0.9% 1,000 ML IV SCH (15:30)
[2024-11-09] MEDS: BUPIVACAINE 0.25% PF 30 ML VIAL ONE (15:55)
[2024-11-09] MEDS: DOCUSATE SODIUM 100 MG CAP PO SCH (20:59)
[2024-11-10] MEDS: MULTIVITAMIN TAB PO SCH (08:19)
--- NOTE | 2024-11-10 10:00 | Fluoroscopy Report ---
FL knee RT 1 or 2V CLINICAL HISTORY: RT TIB PLATEU FX COMPARISON STUDY: 11/08/2024 FLUOROSCOPY TIME: 285 seconds FLUOROSCOPY IMAGES: 4 EXPOSURE DOSE: 17 mGy FINDINGS: Fluoroscopy was provided for plate-screw fixation of the proximal tibia. IMPRESSION: Intraoperative fluoroscopy. ACT 112: Negative or not required by law. Electronically signed by: Elbert Joseph M.D. 11/10/2024 9:59 AM
--- NOTE | 2024-11-10 10:16 | Electrocardiogram Report ---
Test Reason : Blood Pressure : */* mmHG Vent. Rate : 60 BPM Atrial Rate : 60 BPM P-R Int : 164 ms QRS Dur : 78 ms QT Int : 416 ms P-R-T Axes : 30 11 20 degrees QTcB Int : 416 ms Normal sinus rhythm Normal ECG No previous ECGs available Confirmed by Ed Pina ([id number]) on 11/10/2024 10:16:02 AM Referred By: REFERRED SELF Confirmed By: Ed Pina
[2024-11-10 10:34] LABS: Hematocrit (blood only) 29.0 % (37.0-47.0); Hemoglobin 10.0 g/dl (12.0-16.0); Mean Corpuscular Hemoglobin 30.2 pg (25.0-34.0); Mean Corpuscular Volume 87.6 fL (80.0-100.0); Platelet Count 194 K/uL (130-400); RDW Standard Deviation 44.3 fL (36.4-46.3); Red Blood Count 3.31 M/uL (4.20-5.40); White Blood Count 10.59 K/ul (4.8-10.8)
[2024-11-10 10:50] LABS: Anion Gap 5.0 (3-11); Blood Urea Nitrogen 12.0 mg/dl (6-23); Calcium 8.9 mg/dl (8.6-10.3); Carbon Dioxide 28.0 mmol/L (21-32); Chloride 104.0 mmol/L (98-107); Creatinine Clr Calc Pharmacy 75.2 ml/min; Glucose 128.0 mg/dl (70-99(Fasting)); Potassium 3.9 mmol/L (3.5-5.1); Sodium 137.0 mmol/L (136-145)
--- NOTE | 2024-11-10 11:22 | Orthopedic Progress Note ---
Date of Service November 10, 2024 Assessment & Plan (1) Fall from standing: (2) Closed fracture of right tibial plateau: (3) Osteopenia: Plan Postoperative day #1 status post open reduction internal fixation right lateral tibial plateau. Overall, the patient is doing well. Her pain is well- controlled. We will transition her into a hinged knee brace today which can be unlocked from 0 to 90 degrees. I am okay with the patient practicing gentle range of motion. She should avoid aggressive range of motion practice. She is nonweightbearing on her right lower extremity. I will plan to see the patient back in 2 weeks for wound check she should be on DVT prophylaxis as an o utpatient as well. As noted previously, the patient is a committed smoker and I implored her to discontinue smoking. This will help her wound heal and help her bones heal. Nonweightbearing right lower extremity Hinged knee brace on at all times unlocked from 0 to 90 degrees Follow-up 2 weeks for wound check Admission and Anticipated Discharge Date Admission Date: November 08, 2024 Subjective Postoperative day #1 status post open duction internal fixation right tibial di teau. Patient resting in her knee immobilizer. Pain is well-controlled. Review of Systems Review of Systems: All systems reviewed & are unremarkable except as noted in HPI & below Physical Exam Physical Exam: On physical examination, the patient is currently resting in a knee immobilizer. Her dressings are clean and dry. Results & Data Vital Signs (Past 12 Hours) Vital Signs Temp Pulse Resp BP BP Pulse Ox O2 Del Method 11/10/24 11:14 37.1 C 73 16 112/62 95 Room Air 11/10/24 06:59 36.9 C 71 18 139/67 94 Room Air 11/10/24 03:36 37.3 C 71 16 147/68 H 95 Room Air
[2024-11-10] MEDS: ENOXAPARIN INJ 40 MG/0.4 ML SYR SQ SCH (12:38)
--- NOTE | 2024-11-10 12:47 | Hospitalist Progress Note ---
Date of Service November 10, 2024 Assessment & Plan (1) Closed fracture of right tibial plateau: (2) Dyslipidemia: (3) Tobacco use: Plan 59-year-old female with past medical history of breast mass s/p resection, dyslipidemia, and tobacco use who presented to the ED on 11/08/2024 with right knee pain after a mechanical fall and is admitted for closed fracture of right tibial plateau. Right tibial plateau fracture Status post mechanical fall POD#[address] Silvana CHRISTOPHER right leg Pain control with scheduled tylenol, PRN tramadol and oxycodone Avoid NSAIDs; home baby aspirin on hold PT/OT recommending home with home health PT/OT Plan for switch from immobilizer to TROM brace today and then patient can do gentle ROM per Ortho Dyslipidemia Continue atorvastatin Tobacco use Counseled on tobacco cessation Nicotine patch History of R breast mass s/p resection Avoid R arm for blood draws DVT Prophylaxis: SQ lovenox Code Status: FULL CODE PCP: Angelia Engle Disposition: awaiting ortho recs for discharge Patient seen in collaboration with Dr Meléndez. Please see addendum. I spent a total of 50 minutes coordinating, documenting and providing care for this patient excluding time spent in the performance of separately billed services or time spent by another provider/QHP. Admission and Anticipated Discharge Date Admission Date: November 08, 2024 Supervising Physician Co-Signing Physician Notes Patient is seen and examined at bedside. States having right knee pain at surgical site Due to immobilizer. Also reports numbness of foot. No other complaints today. Physical Exam: Vitals signs as noted above General Appearance:Moderately built and nourished, no apparent distress Head: normocephalic, Atraumatic Eyes: normal inspection, EOMI Neck: supple, Trachea midline Respiratory/Chest: Normal breath sounds, CTA, No accessory muscle use Cardiovascular: S1, S2, No murmur Abdomen/GI:Soft, Non tender, Bowel sounds present Extremities/Musculoskeletal:normal inspection, left knee surgical site in dressing, no edema Neurologic/Psych:AAOX3, grossly no focal neurological deficits Skin: normal color, warm Closed fracture of right tibial plateau S/P ORIF by Dr.Eaton Arshad Postoperative acute blood loss anemia No indication for blood transfusion currently Pain control as needed Bowel regimen to prevent constipation Appreciate orthopedics help Patient not interested in rehab placement Continue wound care Nonweightbearing right lower extremity per Ortho Continue knee brace Started on Lovenox for DVT prophylaxis Case management to help with discharge planning Needs follow-up with orthopedics in 2 weeks on discharge I personally interviewed and examined the patient at bedside. I have reviewed the advanced practitioner's documentation on the date of service referred in no te and agree with plan. Patient's care is coordinated with [facility] S[facility]. Please refer to the documentation above for details of patient's presentation and for discussion of other issues. I spent a total of 20 minutes coordinating, documenting, and providing care for this patient excluding time spent in the performance of separately billed services or time spent by another provider/QHP. Subjective Patient seen sitting up in bed Reporting 10/10 pain after working with PT Notes pain is in her right knee due to immobilizer Reports numbness of left foot Review of Systems Review of Systems: All systems reviewed & are unremarkable except as noted in Subjective Physical Exam Physical Exam: General/Psych: WD/WN, sitting up in bed, NAD, conversing easily Head: normocephalic, atraumatic Eyes: normal inspection, PERRL, conjunctivae pink ENT: external ear and nose normal, oropharynx normal Neck: normal visual inspection, trachea midline Respiratory: normal respiratory effort, lungs clear to auscultation, no wheeze/rales/rhonchi, no accessory muscle use Cardiovascular: regular rate and rhythm, no murmur/rub/gallop, no JVD Extremities: no cyanosis or clubbing, normal peripheral pulses, no BLE edema, LLE with immobilizer in place, left toes pale with brisk cap refill Abdomen/GI: normal bowel sounds, soft, nontender Neurologic/MSK: A+Ox3, motor strength 5/5, moves all extremities Skin: no rashes, normal color, warm and dry Results & Data Results & Data Vital Signs (Past 12 Hours) Vital Signs Temp Pulse Resp BP BP Pulse Ox O2 Del Method 11/10/24 11:14 37.1 C 73 16 112/62 95 Room Air 11/10/24 06:59 36.9 C 71 18 139/67 94 Room Air 11/10/24 03:36 37.3 C 71 16 147/68 H 95 Room Air Laboratory Results Short CBC 11/10/24 Range/Units 09:59 WBC 10.59 (4.8-10.8) K/ul Hgb 10.0 L (12.0-16.0) g/dl Hct 29.0 L (37.0-47.0) % Plt Count 194 (130-400) K/uL BMP 11/10/24 09:59 Sodium 137 Potassium 3.9 Chloride 104 Carbon Dioxide 28 BUN 12 Creatinine 0.75 Glucose 128 H Calcium 8.9 I have independently reviewed and interpreted patient's admitting labs including CBC, BMP Medications Administered Current Inpatient Medications Acetaminophen (Acetaminophen 500 Mg Tab) 1,000 mg PO Q8H [facility] Stop: 12/08/24 09:59 Last Admin: 11/10/24 09:05 Dose: 1,000 mg Atorvastatin Calcium (Atorvastatin 40 Mg Tab) 40 mg PO QPM [facility] Stop: 12/08/24 20:59 Last Admin: 11/09/24 21:00 Dose: 40 mg Bisacodyl (Bisacodyl 10 Mg Supp) 10 mg [place] DAILY PRN PRN Reason: Constipation Stop: 12/09/24 15:16 Docusate Sodium (Docusate Sodium 100 Mg Cap) 100 mg PO BID [facility] Stop: 12/09/24 20:59 Last Admin: 11/10/24 08:19 Dose: 100 mg Enoxaparin Sodium (Enoxaparin Inj 40 Mg/0.4 Ml Syr) 40 mg SQ Q24H [facility] Stop: 12/10/24 11:44 Last Admin: 11/10/24 12:38 Dose: 40 mg Magnesium Hydroxide (Magnesium Hydroxide Susp 30 Ml Udc) 30 ml PO Q6H PRN PRN Reason: Constipation Stop: 12/09/24 15:16 Miscellaneous (Remove Nicoderm Patch) 1 each N/A DAILY@0859 [facility] Stop: 12/09/24 08:58 Last Admin: 11/10/24 08:18 Dose: Not Given Miscellaneous Medication (No Nsaids) 1 each N/A UD [facility] Stop: 12/09/24 15:16 Multivitamins (Multivitamin Tab) 1 tab PO QAM [facility] Stop: 12/10/24 08:59 Last Admin: 11/10/24 08:19 Dose: 1 tab Ondansetron HCl (Ondansetron Inj 2 Mg/Ml 2 Ml Vial) 4 mg IV Q4H PRN PRN Reason: Nausea And Vomiting Stop: 12/08/24 11:13 Last Admin: 11/09/24 15:41 Dose: 4 mg Oxycodone HCl (Oxycodone Hcl Ir 5 Mg Tab (Immediate Release)) 5 - 10 mg PO Q4H PRN PRN Reason: Pain or Pre PT Stop: 11/23/24 15:16 Last Admin: 11/10/24 12:41 Dose: 5 mg Polyethylene Glycol (Polyethylene (Miralax) 17 Gm Pack) 17 gm PO DAILY [facility] Stop: 12/09/24 08:59 Last Admin: 11/10/24 08:18 Dose: Not Given Tramadol HCl (Tramadol Hcl 50 Mg Tablet) 50 mg PO Q6H PRN PRN Reason: Moderate Pain (Scale 4, 5, 6) Stop: 12/08/24 09:54 Last Admin: 11/10/24 07:41 Dose: 50 mg
[2024-11-11 06:59] LABS: Hematocrit (blood only) 28.8 % (37.0-47.0); Hemoglobin 9.5 g/dl (12.0-16.0); Mean Corpuscular Hemoglobin 29.3 pg (25.0-34.0); Mean Corpuscular Volume 88.9 fL (80.0-100.0); Platelet Count 183 K/uL (130-400); RDW Standard Deviation 44.9 fL (36.4-46.3); Red Blood Count 3.24 M/uL (4.20-5.40); White Blood Count 7.50 K/ul (4.8-10.8)
[2024-11-11 07:09] VITALS: BP 145/67; PULSE 67; RESP 18; TEMP 98.4; O2SAT 94
--- NOTE | 2024-11-11 12:12 | Discharge Summary ---
Discharge Summary Date of Service November 11, 2024 Principal Dx & Hospital Course #1 = Principal Diagnosis (1) Closed fracture of right tibial plateau: (2) Dyslipidemia: (3) Tobacco use: Plan 59-year-old female with past medical history of breast mass s/p resection, dyslipidemia, and tobacco use who presented to the ED on 11/08/2024 with right knee pain after a mechanical fall and is admitted for closed fracture of right tibial plateau. Right tibial plateau fracture Status post mechanical fall s/p ORIF by Dr Pina on 11/09/2024 NWB right leg with use of walker TROM brace in place with gentle ROM of right knee Pain control with PRN tylenol and tramadol Avoid NSAIDs per Ortho DVT prophylaxis with Lovenox 40mg SQ daily x6 weeks PT/OT recommended home with home health PT/OT Patient discharged with [facility] PT/OT Dyslipidemia Continue atorvastatin Tobacco use Counseled on tobacco cessation History of R breast mass s/p resection R arm restriction for blood draws Patient seen in collaboration with Dr Meléndez. Please see addendum. Notes For Next Care Provider 59 year old female with significant PMH who was admitted to [facility] from 11/08- 11/11/2024 after a fall at home where she sustained a closed right tibial plateau fracture. Underwent ORIF by Dr Jeancarlos Pina on 11/09/2024. Patient discharged to home with home PT/OT services. Patient is NWB RLE with a walker, has a TROM brace for ROM right knee, pain control with PRN tylenol and tramadol (avoid NSAIDs), DVT prophylaxis with 6 weeks of daily Lovenox. Medication Changes From Visit Lovenox 40mg SQ daily x6 weeks Tramadol 50mg PO q6hr PRN severe pain Admission HPI Per Admitting Provider 59-year-old female with past medical history of dyslipidemia, smoker, presenting with right knee pain after a fall this morning. Patient was walking down the steps when she accidentally missed 2 steps landing on the floor with her right knee. Patient then experienced severe pain after the fall and had difficulty standing up. She denies dizziness, lightheadedness, Presyncope/syncope prior to the fall. Upon arrival to the ER, blood pressure 161/65, pulse rate 76, heart rate 18, 100% on room air, afebrile. CT of the right knee showing acute depressed markedly comminuted fracture of the lateral tibial plateau extending to the base of the lateral tibial spine with maximal 9 mm depression. Orthopedic service consulted, plan for OR tomorrow. On exam, patient seen resting in bed, not in distress, comfortable. States right knee pain is well-controlled overall, worsening with movement. Denies any other pain in her body. Denies head trauma during the fall. Patient reports she is an active person, cleans the house frequently, climbing up and down at least 12 steps multiple times a day with no unusual shortness of breath or chest pain. She does report occasional palpitations, once a month lasting for about 2 to 3 seconds with no associated symptoms. This has been worked up by her primary care physician including EKG- Unrevealing as per patient, an echocardiogram last month, results not yet relayed to the patient as of this time. Admission Exam Per Admitting Provider General- oriented x 3, not in distress, speaks in sentences with no effort or accessory muscle use Head- atraumatic Eyes- PERRL, EOMI, anicteric ENT- oropharynx clear Neck- supple, no JVD, no adenopathy, no thyromegaly; carotids +2/2, no bruits appreciated Lungs- clear to auscultation bilaterally, no rales/wheezes Heart- normal rate, regular rhythm; no murmur, no gallop, no rub appreciated Abdomen- normal bowel sounds, nondistended, soft, nontender, no masses or hepatosplenomegaly Extremities- no pretibial edema, no calf tenderness; peripheral pulses intact R knee: Significant edema, small hematoma, mild tenderness, no erythema, no warmth, very limited range of motion due to pain Neuro- alert, oriented x 3; CN 2-12 grossly intact; motor 5/5 bilaterally;sensation 100% on all extremities; no other gross focal neurologic deficits Skin- warm & dry Discharge Exam General/Psych: WD/WN, sitting up in the chair, NAD, conversing easily Head: normocephalic, atraumatic Eyes: normal inspection, PERRL, conjunctivae pink ENT: external ear and nose normal, oropharynx normal Neck: normal visual inspection, trachea midline Respiratory: normal respiratory effort, lungs clear to auscultation, no wheeze/rales/rhonchi, no accessory muscle use Cardiovascular: regular rate and rhythm, no murmur/rub/gallop, no JVD Extremities: no cyanosis or clubbing, normal peripheral pulses, no BLE edema, LLE with TROM in place, left toes pale with brisk cap refill Abdomen/GI: normal bowel sounds, soft, nontender Neurologic/MSK: A+Ox3, motor strength 5/5, moves all extremities Skin: no rashes, normal color, warm and dry Updated Medication List Medication Instructions Recorded Confirmed Type acetaminophen 650 mg 1,300 mg PO QAM 11/08/24 11/08/24 History tablet,extended release ascorbic acid (vitamin C) 250 mg 250 mg PO DAILY 11/08/24 11/08/24 History tablet aspirin 81 mg chewable tablet 81 mg PO QPM 11/08/24 11/08/24 History atorvastatin 40 mg tablet 40 mg PO QPM 11/08/24 11/08/24 History fish, borage, flaxseed oils-omega 1 cap PO DAILY 11/08/24 11/08/24 History 3,6,9 comb no.1 1,200 mg capsule (Hamel 3-6-9) enoxaparin 40 mg/0.4 mL 40 mg (0.4 mL) subcut Q24H #42 11/11/24 Rx subcutaneous syringe syringes tramadol 50 mg tablet 50 mg PO Q6H PRN severe pain 11/11/24 Rx (scale score 7-10) #20 tabs Hospital Stay Data Consultations 11/08/24 09:34 Consult Orthopedic Surgery Stat 11/08/24 09:46 ED Decision to Admit Stat 11/08/24 09:54 Consult Orthopedic Surgery Routine Procedures Performed Operation Date: 11/09/24 07:30 Actual Procedures p Open Reduction Internal Fixation Right Tibial Plateau Fracture, Physician guided flouroscopy >1 hour, Application of Negative Pressure Wound Therapy(Right) - Jeancarlos Pina DO Diagnostic Imagining Performed Knee X-Ray 11/08/24 06:57 EXAM: Radiographs of the Right Knee 2 Views INDICATION: Posttraumatic pain. TECHNIQUE: Frontal and lateral views of the right knee. COMPARISON: No relevant prior studies available. FINDINGS: Bones/joints: There is an acute depressed fracture of the lateral tibial plateau. Concavity is approximately 6 mm. There is minimal lateral tibial translation. There is mild tricompartment spurring. There is a lipohemarthrosis. No dislocation. No erosion or loose body. Soft tissues: No abnormality noted. No radiopaque foreign body noted. IMPRESSION: 1. Acute, depressed fracture of the right lateral tibial plateau. 2. Mild tricompartment primary osteoarthritis. ACT 112: N/A Electronically signed by Elsie Reilly 11-08-2024 08:[address] 11/08/24 07:33 EXAM: CT Right Lower Extremity Without Intravenous Contrast Knee INDICATION: Fracture TECHNIQUE: Axial computed tomography images of the right knee without intravenous contrast. Sagittal and coronal reformatted images were created and reviewed. This CT exam was performed using one or more of the following dose reduction techniques: automated exposure control, adjustment of the mA and/or kV according to patient size, and/or use of iterative reconstruction technique. COMPARISON: Right knee radiographs the same day FINDINGS: Bones/joints: The bones are generally demineralized. There is a moderate to severely comminuted fracture of the proximal tibia involving the lateral compartment with extension to involve the base of the lateral tibial spine. Fracture fragments are depressed with maximal depression of 9 mm. There is minimal distraction of a prominent anterolateral plateau fragment measuring 2.4 x 1.6 x 2.2 cm. Depression is most severe medially. There is moderate spurring of the articular surfaces of the femur as well as mild spurring of the intercondylar notch. There is spurring of the medial and lateral articular surfaces of the tibia. There is a well-corticated ossicle along the lateral femoral condyle consistent with previous injury. There is moderate patellofemoral spurring, subchondral cystic change and sclerosis. There is a moderate lipohemarthrosis. Soft tissues: No abnormality noted. IMPRESSION: 1. Acute depressed markedly comminuted fracture of the lateral tibial plateau extending to the base of the lateral tibial spine with maximal 9 mm depression. 2. Moderate tricompartment primary osteoarthritis. ACT 112: N/A Electronically signed by Elsie Reilly 11-08-2024 08:43 AM Chest X-Ray 11/08/24 09:46 EXAM: Radiograph of the Chest 1 View INDICATION: Preoperative evaluation. TECHNIQUE: Frontal view of the chest. COMPARISON: No relevant prior studies available. FINDINGS: Lungs and pleural spaces: Very mild hyperinflation noted. No consolidation or pulmonary edema. No pleural effusion or pneumothorax. Heart: Shape and configuration within normal limits allowing for technique. Mediastinum: Normal contour. Bones/joints: No fracture, erosion or dislocation. Soft tissues: No abnormality noted. No radiopaque foreign body noted. Upper abdomen: No abnormality noted. IMPRESSION: No acute cardiopulmonary disease. ACT 112: N/A Electronically signed by Elsie Reilly 11-08-2024 10:31 AM Femur X-Ray 11/08/24 11:53 EXAM: XR femur RT 2V routine CLINICAL HISTORY: Eval entire bone TECHNIQUE: X-ray, AP, and lateral projections of the right femur radiographs were obtained. COMPARISON: none FINDINGS: Femur: Comminuted fracture of the lateral tibial plateau A small bony fragment is seen at the lateral aspect of the lateral femoral condyle, which could be a detached small osteophyte, to be correlated with the CT knee. Normal alignment of the femur with no fractures or dislocations. No lytic or sclerotic lesions. No periosteal reaction or abnormal bone formation. Joint: mild osteoarthritic angles of the right hip joint advanced Osteoarthritic changes of the knee joint Knee joint effusion Soft Tissues: Normal appearance of the soft tissues surrounding the femur. IMPRESSION: 1. Comminuted fracture of the lateral tibial plateau. 2. A small bony fragment is seen at the lateral aspect of the lateral femoral condyle, which could be a detached small osteophyte, to be correlated with the CT knee. 3. Mild osteoarthritic angles of the right hip joint. 4. Advanced osteoarthritic changes of the knee joint. 5. Moderate to marked Knee joint effusion. 6. No evidence of fractures, dislocations, or significant abnormalities of the right femur. Electronically signed by Sergei Verdin 11-08-2024 7:31 PM Tibia/Fibula X-Ray 11/08/24 11:53 EXAM: XR tibia fibula RT 2V CLINICAL HISTORY: Eval entire bone. TECHNIQUE: X-ray right tibia and fibula, 2 views: AP (Anteroposterior) and lateral projections. COMPARISON: None, FINDINGS: Bone: Comminuted fracture of the lateral tibial plateau. The rest of the visualized tibia and fibula are intact, and no evidence of fracture or dislocation. advanced Osteoarthritic changes of the knee joint. calcaneal bony spur at its plantar aspect. Soft Tissue: Knee joint effusion. Otherwise, the rest of the Soft tissues appear normal with no significant swelling or abnormal calcifications. IMPRESSION: Comminuted fracture of the lateral tibial plateau. Intact tibial and fibular shafts. Disclaimer: A subtle bone abnormality or fracture may not be readily apparent on X-rays; thus, clinical correlation and further imaging, including follow-up CT, MRI, or follow-up X-rays, are advised as needed. Electronically signed by Sergei Verdin 11-08-2024 7:30 PM Knee X-Ray 11/09/24 00:00 FL knee RT 1 or 2V CLINICAL HISTORY: RT TIB PLATEU FX COMPARISON STUDY: 11/08/2024 FLUOROSCOPY TIME: 285 seconds FLUOROSCOPY IMAGES: 4 EXPOSURE DOSE: 17 mGy FINDINGS: Fluoroscopy was provided for plate-screw fixation of the proximal tibia. IMPRESSION: Intraoperative fluoroscopy. ACT 112: Negative or not required by law. Electronically signed by: Elbert Joseph M.D. 11/10/2024 9:59 AM Pending Results Patient Have Any Pending Studies at Discharge: No Discharge Instructions Given to Patient (Per Discharging Provider) You presented to the hospital after falling at home and were found to have a fracture of your right tibial plateau. You underwent surgery with open reduction internal fixation by Dr Jeancarlos Pina on 11/09/2024. Post operatively, you are to be nonweightbearing on your right leg and will need to use a walker. You have a TROM brace where you can do gentle range of motion of your right knee, but please do not overdo it. For pain control, you should take tylenol and tramadol as needed and avoid anti-inflammatory agents like naproxen, ibuprofen, motrin, Advil due to risk of bleeding. You will need to do lovenox injections once daily for 6 weeks. You will need to follow up with Orthopedics in two weeks for a wound check. Please keep your dressing clean and dry. You are being discharged with home health for physical therapy. A script was provided for you to have a walker and bedside commode at home. MEDICATION CHANGES: Lovenox 40mg subcutaneously daily for 6 weeks for blood clot prevention Tramadol 50mg by mouth every six hours as needed for severe pain (consider getting an qjia-rms-ykajlle stool softener for constipation) SUMMARY OF TEST RESULTS: Knee x-ray and CT showed fracture and mild osteoarthritis Femur x-ray showed fracture and mild osteoarthritis of the right hip joint, advanced osteoarthritis of the right knee joint Tibia/fibula x-ray showed fracture PENDING TEST RESULTS: None RECOMMENDATIONS FOR FOLLOW-UP: Please follow up with your PCP as scheduled on 11/18/2024 at 9:15am Please follow up with Orthopedics in two weeks for a wound check - they should call you but if you don't hear you can call their office at [phone] OTHER INSTRUCTIONS: Seek medical attention if you have: * temperature above 101 * chest pain or trouble breathing * abdominal pain, nausea, vomiting * diarrhea, dark stools or bloody stools * any unanswered questions or concerns Call 911 if symptoms are severe. It has been a pleasure taking care of you. Please take care of yourself. If you have any questions regarding your recent hospitalization please contact [facility] and request Damien Joseist @ [phone]. Home Health Attestation I certify that this patient is under my care and that I, or a physicians business banking sales assistant working with me, had a face to-face encounter that meets the home health ayya-oh-asac encounter requirements with this patient. The encounter with the patient was in whole, or in part, for the following medical condition, which is the primary reason for home health care (list medical condition): I certify that, based on my findings, the following services are medically necessary home health services: My clinical findings support the need for the above services because: OT Assess ADL Status and Restore Function w ADLs PT Eval for Safety, Gait Training, Assistive Devices PT Gait and Balance Training, Strengthening and Safety Further, I certify that my clinical findings support that this patient is homebound (i.e. absences from home require considerable and taxing effort and are for medical reasons or gnosticism services or infrequently or of short duration when for other reasons) because: Supportive Aid - Walker Transportation Assistance/Unable to Leave Home Unassisted Certification for Home Health Services: Based on the above findings, I certify that this patient is confined to the home and needs intermittent prison care, physical therapy and/or speech therapy or continues to need occupational therapy. The patient is under my care, and I have initiated the establishment of the plan of care. This patient will be followed by a physician who will periodically review the plan of care. Total Time Total Time Spent Total Time Spent (In Minutes): I spent a total of 35 minutes coordinating, documenting and providing care for this patient excluding time spent in the performance of separately billed services or time spent by another provider/QHP. Supervising Physician Co-Signing Physician Notes Patient is seen and examined at bedside on day of discharge. Pain is controlled. Prefers to be discharged home. Advised to follow-up with orthopedics on discharge Physical Exam: Vitals signs as noted above General Appearance:Moderately built and nourished, no apparent distress Head: normocephalic, Atraumatic Eyes: normal inspection, EOMI Neck: supple, Trachea midline Respiratory/Chest: Normal breath sounds, CTA, No accessory muscle use Cardiovascular: S1, S2, No murmur Abdomen/GI:Soft, Non tender, Bowel sounds present Extremities/Musculoskeletal:normal inspection, left knee surgical site in dressing, no edema Neurologic/Psych:AAOX3, grossly no focal neurological deficits Skin: normal color, warm Closed fracture of right tibial plateau S/P ORIF by Dr.Eaton Arshad Postoperative acute blood loss anemia No indication for blood transfusion currently Pain control as needed Bowel regimen to prevent constipation Appreciate orthopedics help Patient not interested in rehab placement Continue wound care Nonweightbearing right lower extremity per Ortho Continue knee brace Continue Lovenox for DVT prophylaxis Continue bowel regimen to prevent constipation Advised to follow-up with orthopedics in 2 weeks and PCP in 1 week upon discharge I personally interviewed and examined the patient at bedside. I have reviewed the advanced practitioner's documentation on the date of service referred in not e and agree with plan. Patient's care is coordinated with [facility]. Please refer to the documentation above for details of patient's presentation and for discussion of other issues. I spent a total of 20 minutes coordinating, documenting, and providing care for this patient excluding time spent in the performance of separately billed services or time spent by another provider/QHP.
--- NOTE | 2024-11-11 12:13 | Orthopedic Progress Note ---
Date of Service November 11, 2024 Assessment & Plan (1) Fall from standing: (2) Closed fracture of right tibial plateau: (3) Osteopenia: Plan Postoperative day #2 status post open reduction internal fixation right lateral tibial plateau. Overall, the patient is doing well. Her pain is well- controlled. She is now in a hinged knee brace today which can be unlocked from 0 to 90 degrees. I am okay with the patient practicing gentle range of motion. She should avoid aggressive range of motion practice. She is nonweightbearing on her right lower extremity. I will plan to see the patient back in 2 weeks for wound check. As noted previously, the patient is a committed smoker and I implored her to discontinue smoking. This will help her wound heal and help her bones heal. Nonweightbearing right lower extremity Hinged knee brace on at all times unlocked from 0 to 90 degrees Follow-up 2 weeks for wound check Lovenox for DVT prophylaxis at home Admission and Anticipated Discharge Date Admission Date: November 08, 2024 Subjective Postoperative day #2 status post open duction internal fixation right tibial plateau. Patient doing well. Notes that her leg feels improved after dressings were loosened yesterday. Review of Systems Review of Systems: All systems reviewed & are unremarkable except as noted in HPI & below Physical Exam Physical Exam: On physical examination, the patient is currently resting in her hinged knee brace. This is unlocked 0 to 90 degrees. Her dressings are clean and dry. Results & Data Vital Signs (Past 12 Hours) Vital Signs Temp Pulse Resp BP Pulse Ox O2 Del Method 11/11/24 07:00 36.9 C 67 18 145/67 H 94 Room Air
== END 2024-11-11 13:07 | disposition home health service (06) | DRG 493 ==
LOC: ED 06:36 → SUATTDRO 09:54 → 3W 09:54